=== PATIENT | female | born 2000 | race Hispanic/Latino ===

== ENCOUNTER 2018-10-22 16:53 | Outpatient (CLI) | payer OTHER ==
[~2018-10-22] VITALS: Ht 154.9 cm; Wt 73.3 kg
[2018-10-22 17:12] VITALS: BP 129/77
[2018-10-22] MEDS ORDERED: PRENTAB9 PO (17:25)
[2018-10-22 17:43] VITALS: BP 131/70
--- NOTE | 2018-10-22 20:18 | HPE ---
DATE OF ADMISSION: 10/22/2018 This lady is a 18-year-old, 1, LMP 02/24/2018, EDC by early ultrasound of 8 weeks' 2 days is 02/20/2019, came in with decreased movement of 24 hours at 22 and 5 weeks of gestation. LABORATORY DATA: A+, HIV negative, hepatitis negative, RPR negative, rubella immune. Varicella immune. Pap normal. Gonorrhea and chlamydia negative. Blood pressure 129/77, respirations 18, pulse 102 and temperature 98.3. No distress. Symphysis fundus height is appropriate. Four quadrant bowel sounds are noted. While here the patient actually felt movement. We got a short strip which showed a good baseline of 140 beats per minute. No decelerations. Good kick chart. No vaginal bleeding or loss. The patient was counseled to keep her appointment on 11/03/2018. Discharged undelivered.
== END 2018-10-22 17:50 | disposition home or self-care (01) ==
LOC: M LDO 16:53
PROVIDERS: ATTEND Obstetrics & Gynecology
DX: O36.8120 Decreased fetal movements, second trimester, not applicable or unspecified (principal); Z3A.22 22 weeks gestation of pregnancy
CPT/HCPCS: G0378; G0463

== ENCOUNTER 2019-01-08 11:20 | Outpatient (CLI) | payer OTHER ==
[~2019-01-08] VITALS: Ht 154.9 cm; Wt 87.4 kg
[~2019-01-08 11:20] MED LIST: PRENTAB9 PO
[2019-01-08 11:32] VITALS: BP 113/74
[2019-01-08] MEDS ORDERED: IRON27TA2 PO (11:45)
[2019-01-08] MEDS ORDERED: VITA100T59 PO (11:45)
[2019-01-08 12:37] VITALS: BP 111/58
--- NOTE | 2019-01-08 12:47 | IPNPDOC ---
Text Note Date of Service The patient was seen on 01/08/19. NOTE Triage Note Juani is a 18yo with SIUP at 33w6d by 1st trimester u/s presenting today for an episode of emesis, a loose BM, and some abdominal cramping. She notes excellent movement with no LOF, no regular ctx, no vaginal bleeding. She does not recall eating any strange new foods or fast food, no sick contacts. She had some eggs this morning and then a few minutes after, vomited. No blood in emesis or stool. No fevers/chills. No dysuria. No abnormal vaginal discharge. 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 status reassuring. Vitals wnl w/benign exam. No e/o PTL, SCE cl/th/high. Plan: -Safe for discharge home -Discussed concentrating on hydration today and BRAT diet -Next visit on 01/18, pt instructed to keep -Discussed return precautions at length Dr. Caitlin Witt MD VS,Barb, I+O VS, Barb, I+O Vital Signs Date Time Temp Pulse Resp B/P (MAP) Pulse Ox O2 Delivery O2 Flow Rate FiO2 01/08/19 11:32 98.0 93 18 113/74 (87) 98 Room Air Caitlin Witt MD Jan 08, 2019 12:47
== END 2019-01-08 12:55 | disposition home or self-care (01) ==
LOC: M LDO 11:20
PROVIDERS: ATTEND Obstetrics & Gynecology
DX: O99.89 Other specified diseases and conditions complicating pregnancy, childbirth and the puerperium (principal); Z3A.33 33 weeks gestation of pregnancy; K52.9 Noninfective gastroenteritis and colitis, unspecified
CPT/HCPCS: 59025; G0378; G0463

== ENCOUNTER 2019-02-18 18:11 | Outpatient (CLI) | payer OTHER ==
[~2019-02-18] VITALS: Ht 154.9 cm; Wt 87.6 kg
[~2019-02-18 18:11] MED LIST changes: +IRON27TA2 PO; +VITA100T59 PO
[2019-02-18 18:27] VITALS: BP 121/66
--- NOTE | 2019-02-18 19:07 | IPNPDOC ---
Text Note Date of Service The patient was seen on 02/18/19. NOTE 18 yo at 39+5 weeks presented to L&D with the complaint of decreased movement for the past 2 hours. Previously today she felt normal movement. She also reports intermittent contractions and would like her cervix checked. She denies any vaginal bleeding or discharge. She has GDMA1 and her blood sugars are well controlled. Most recently she reports a glucose value of 94 this afternoon. Chaperoned by L&D RN Vitals - VSS, afebrile, normotensive. Slightly tachycardic but no symptoms of SOB or palpitations. General - AAOX3, sitting up in bed, NAD, pleasant and conversant Abdomen - Gravid uterus, no fundal tenderness Cervix - Ft/thick/high, posterior FHR tracing - Cat I tracing with moderate variability, +accels, no decels. Irregular ctx on toco. NST reactive and Ms. Villela felt significant movement while in triage and was reassured. Not in labor based on exam. Patient discharged with return precautions. She has a follow up appointment booked for Thursday. Return to care sooner for any urgent concerns. DO LOI Liang,Barb, I+O VS, Paramjitbone, I+O Vital Signs Date Time Temp Pulse Resp B/P (MAP) Pulse Ox O2 Delivery O2 Flow Rate FiO2 02/18/19 18:27 97.7 121 18 121/66 (84) REGINALD CASSIDY DO Feb 18, 2019 19:07
== END 2019-02-18 19:00 | disposition home or self-care (01) ==
LOC: M LDO 18:11
PROVIDERS: ATTEND Obstetrics & Gynecology
DX: O36.8130 Decreased fetal movements, third trimester, not applicable or unspecified (principal); O47.1 False labor at or after 37 completed weeks of gestation; Z3A.39 39 weeks gestation of pregnancy
CPT/HCPCS: 59025; G0378; G0463

== ENCOUNTER 2019-02-20 15:37 | Inpatient (IN) | payer OTHER ==
[2019-02-20] VITALS (8 sets, daily range): BP systolic 90–123; BP diastolic 52–76
[~2019-02-20] VITALS: Ht 154.9 cm; Wt 87.8 kg
[2019-02-20] MEDS ORDERED: LACTATED RINGER'S 1000 ML IV STA (16:41)
[2019-02-20] MEDS ORDERED: LR 1,000 ML IV SCH (17:00)
[2019-02-20 17:24] LABS: HEMATOCRIT 34.8 % (36.0-47.0); HEMOGLOBIN 11.5 g/dl (12.0-15.5); MEAN CORPUSCULAR HEMOGLOBIN 27.8 pg (27.0-33.0); MEAN CORPUSCULAR VOLUME 84.3 fl (80.0-96.0); PLATELET COUNT, AUTOMATED 290 10^3/uL (150-450); RED BLOOD COUNT 4.13 10^6/uL (4.00-5.40); WHITE BLOOD COUNT 10.4 10^3/uL (4.0-10.0)
--- NOTE | 2019-02-20 18:01 | HPEPDOC ---
Obstetrical History & Physical General Date of Admission Feb 20, 2019 at 16:43 History of Present Illness Juani is a 18yo with SIUP at 40w0d by 8wk u/s presenting this afternoon with 2 complaints- the first is a new right sided "rib pain" that wraps around to her back. She notes that the pain makes taking a deep breath difficult. She does not remember any trauma or inciting incident. No palpitations. No fevers/chills. No leg pain. Her second complaint is DFM. She notes having been evaluated for this complaint within the last week and states that she does not get her kick counts anymore. She states this is a dramatic difference from previous. She believes she only felt 3 movements total yesterday. No lof. Does not feel ctx. No vaginal bleeding. In triage, vitals are wnl and exam consistent most with a musculoskel etal etiology for her rib pain. However, given that she does not get her kick counts and this has been ongoing, there is no way for me to send her home with the ability to reassure herself of wellbeing and since she is 40wk gestation, I recommend IOL. 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 Past Medical History Medical History benign Surgical History: Tonsilectomy Family History Significant Family History: No pertinent family hx Social History Marital Status: Family situation: Spouse/partner home Psychosocial History: No pertinent psych hx * Smoker: non-smoker Alcohol: Denies Drugs: denies Imunizations Tdap status: current Influenza Status: declined Allergies Coded Allergies: No Known Allergies (Unverified , 02/20/19) Medications Scheduled Ascorbic Acid (Vitamin C) 100 Mg Tablet, 1 TAB PO BID Unknown Dose Ferrous Gluconate (Iron) 236 Mg Tablet, 1 TAB PO BID Unknown dose No.137/Iron/Folic Acd ( Vitamin Tablet) 1 Each Tablet, 1 TAB PO DAILY Physical Examination Physical Examination GENERAL: Alert and oriented times three. ABDOMEN: Gravid and non-tender to touch. FETUS: Is vertex (VTX) by sterile vaginal examination (SVE) EXTREMITIES: No edema Vital Signs/I&O Vital Signs Date Time Temp Pulse Resp B/P (MAP) Pulse Ox O2 Delivery O2 Flow Rate FiO2 02/20/19 15:57 99.1 93 18 123/76 (92) 98 Room Air Laboratory Data CBC/BMP 28wk H/H: 10.1/30.5, plt 304 Pertinent Laboratoy Data Blood Type: A+ RBC Antibody Screen: Negative HIV: Negative Hepatitis B: Negative Hepatitis C: Unknown Rapid Plasma Reagin: Nonreactive Rubella: Immune Varicella: Immune Chlamydia/Gonorrhea: Negative Group B Streptococcus: Negative Quad Screen Test: Negative ([id number] wnl ) Glucose Tolerance Test: 152 (104/204/106/124) Anatomy Ultrasound Ultrasound Date: Oct 04, 2018 Placenta Location: Posterior Normal Anatomy: Yes Placenta Previa: No Steroid Therapy Steroid Therapy: No Vaginal Examination Dilation: Fingertip Effacement: 50% Station: -3 Cervical Consistency: Medium Cervical Position: Posterior Presentation: Cephalic presentation (by TAUS) Assessment Heart Rate (FHR): 150 Variability: Moderate Accelerations: Positive Decelerations: None Tocometer Contractions: Yes Frequency: irregular, greater than 10 min/apart Duration: less than 60 seconds Strength: palpated as mild Assessment/Plan Assessment Juani is a 18yo with SIUP at 40w0d by 8wk u/s being induced for decreased movement at term. SCE ft/50/-3 with rare ctx. Cephalic by TAUS. Cat I-II FHRT (occasions of min-mod suzy). Vitals wnl, benign exam. course and PMhx significant for: A1GDM well controlled with diet, a nemia on iron/vit C, excessive weight gain (46lb) Plan Admit and orient. [place] and consent. Diet: regular dinner then clear liquids Group B Streptococcus (GBS) negative Labs and intravenous (IV) per unit protocol. Counseled on cytotec, morrison bulb, Pitocin and induction of labor (IOL). Patient on admission is fingertip, so will proceed with cytotec 50mcg PO Q4hr. Lactated Ringers (LR): Bolus 500 mL, then at 125 mL/hr. Anticipate normal spontaneous delivery () Candidate for epidural in active labor, stadol in latent labor as desired MD Miryam Hare Katrina D MD Feb 20, 2019 17:01
[2019-02-20] MEDS ORDERED: BUTORPHANOL 2 MG/ML INJ (J0595) IV PRN (18:15)
[2019-02-20] MEDS: miSOPROStol 50 MCG 1/2 TAB (S0191) PO SCH ×2 (19:00→23:00)
[2019-02-20] MEDS ORDERED: diphenhydrAMINE INJ 50MG/ML VIAL (J1200) IV ONE (23:15)
[2019-02-21] VITALS (34 sets, daily range): BP systolic 97–130; BP diastolic 52–81
--- NOTE | 2019-02-21 03:44 | IPNPDOC ---
Text Note Date of Service The patient was seen on 02/21/19. NOTE Intrapartum Note Juani is doing well, was able to sleep a bit. Has had 2 doses of oral cytotec and feels slight cramping with ctx. Vitals wnl, afebrile Cat I-II FHRT (min-mod suzy, +accels, -decels) [place]: ctx q2-3min SCE: /-2, cook catheter morrison bulb placed with 40cc NS intrauterine Plan to begin pitocin and titrate per protocol up to 6mu then keep it at that rate until morrison bulb comes out, then will titrate up per protocol Will continue to monitor closely Safe to proceed Dr. Caitlin Witt MD VS,Barb, I+O VS, Barb, I+O Laboratory Tests 02/20/19 17:06 Vital Signs Date Time Temp Pulse Resp B/P (MAP) Pulse Ox O2 Delivery O2 Flow Rate FiO2 02/20/19 23:00 97.7 90 18 98/56 (70) 02/20/19 18:45 Room Air 02/20/19 15:57 98 I&O- Last 24 Hours up to 6 AM 02/21/19 05:59 Intake Total 500 ml Balance 500 ml Caitlin Witt MD Feb 21, 2019 03:44
[2019-02-21] MEDS: LR 1,000 ML IV SCH ×3 (04:43→16:43)
[2019-02-21] MEDS: OXYTOCIN DRIP 30 UNITS in IV 1 EA IV SCH (04:55)
--- NOTE | 2019-02-21 08:13 | IPNPDOC ---
Text Note Date of Service The patient was seen on 02/21/19. NOTE 18yo with SIUP at 40+1wks gestation admitted to l&d for IOL secondary to DFM. she has had cytotec x 2 and now with morrison bulb and pit. Morrison bulb placed around 0330. She is feeling comfortable at this point. pit: 4mU/min vitals: normal NAD FHT: 135/min-mod suzy/pos accel/no decel toco: ctx q2-3mins a/p patient is not in labor. recheck once bulb comes out. continue to titrate pit as needed. [place], VS,Fishbone, I+O VS, Fishbone, I+O Laboratory Tests 02/20/19 17:06 Vital Signs Date Time Temp Pulse Resp B/P (MAP) Pulse Ox O2 Delivery O2 Flow Rate FiO2 02/21/19 06:55 98.3 99 16 102/60 (74) 02/20/19 18:45 Room Air 02/20/19 15:57 98 I&O- Last 24 Hours up to 6 AM 02/21/19 06:00 Intake Total 500 ml Balance 500 ml JOSÉ BOOTHE DO Feb 21, 2019 08:13
--- NOTE | 2019-02-21 17:34 | IPNPDOC ---
Text Note Date of Service The patient was seen on 02/21/19. NOTE patient is feeling mild contractions. pit: 12mU/min vitals; normal standing, nad fht: 145/mod suzy/pos accel/no decel toco: ctx q 3mins ce: morrison bulb half way out of external cervical os, was easily removed. 1, A/P Patient in latent labor. okay to have regular diet for dinner. continue to titrate pit to effect. recheck in 6hrs. consider AROM at that time. Le, DO VS,Fishbone, I+O VS, Fishbone, I+O Vital Signs Date Time Temp Pulse Resp B/P (MAP) Pulse Ox O2 Delivery O2 Flow Rate FiO2 02/21/19 17:28 98.5 111 18 112/63 (79) 02/20/19 18:45 Room Air 02/20/19 15:57 98 I&O- Last 24 Hours up to 6 AM 02/21/19 06:00 Intake Total 500 ml Balance 500 ml JOSÉ BOOTHE DO Feb 21, 2019 17:34
[2019-02-21] MEDS ORDERED: FENTANYL 2MCG/ML ROPIVACAINE 0.2% IN 0.9% NACL 100ML IVBAG As Ordered ONE (23:59)
[2019-02-22] VITALS (24 sets, daily range): BP systolic 88–124; BP diastolic 50–77
[2019-02-22] MEDS ORDERED: FENTANYL/ROPIVACAINE/NACL BAG 100 ML EPIDURAL SCH (00:33)
[2019-02-22] MEDS ORDERED: EPIDURAL/PCA KEYS XX PRN (00:33)
[2019-02-22] MEDS ORDERED: REFRIGERATOR IV KEYS XX PRN (00:33)
[2019-02-22] MEDS ORDERED: ONDANSETRON 4MG/2ML VIAL (J2405) IV PRN (00:33)
[2019-02-22] MEDS ORDERED: diphenhydrAMINE INJ 50MG/ML VIAL (J1200) IV PRN (00:33)
[2019-02-22] MEDS ORDERED: ePHEDrine SULFATE 25 MG/5 ML(5MG/ML) SYRINGE IV PRN (00:33)
[2019-02-22] MEDS ORDERED: LACTATED RINGER'S 1000 ML IV PRN (00:33)
[2019-02-22] MEDS ORDERED: NALOXONE INJ 0.4 MG/1 ML VIAL (J2310) IV PRN (00:33)
[2019-02-22] MEDS ORDERED: EPIDURAL COMMENT XX SCH (00:33)
--- NOTE | 2019-02-22 01:32 | IPNPDOC ---
Text Note Date of Service The patient was seen on 02/22/19. NOTE patient with epidural for pain management. vitals: normal nad fth: 140/min-mod suzy/pos accel/no decel toco: ctx q2-4mins ce: 3-4/50/-1, arom clear a/p patient in latent labor. continue to titrate pit to effect. recheck as appropriate. Le, DO VS,Fishbone, I+O VS, Fishbone, I+O Vital Signs Date Time Temp Pulse Resp B/P (MAP) Pulse Ox O2 Delivery O2 Flow Rate FiO2 02/21/19 23:26 95 104/66 (79) 02/21/19 21:24 97.9 18 02/20/19 18:45 Room Air 02/20/19 15:57 98 I&O- Last 24 Hours up to 6 AM 02/22/19 06:00 Intake Total 2910 ml Output Total 2450 ml Balance 460 ml JOSÉ BOOTHE DO Feb 22, 2019 01:32
--- NOTE | 2019-02-22 07:35 | IPNPDOC ---
Text Note Date of Service The patient was seen on 02/22/19. NOTE patient with epidural for pain management and feeling pressure. pit: 8mU/min fht: 140/min suzy/poss accel/no decel toco: ctx q 2-3mins ce: c/c/+2. a/p patient in second stage of labor. Start pushing. VS,Fishbone, I+O VS, Fishbone, I+O Vital Signs Date Time Temp Pulse Resp B/P (MAP) Pulse Ox O2 Delivery O2 Flow Rate FiO2 02/22/19 06:47 108 122/58 (79) 02/22/19 06:17 98.1 16 02/20/19 18:45 Room Air 02/20/19 15:57 98 I&O- Last 24 Hours up to 6 AM 02/22/19 06:00 Intake Total 2910 ml Output Total 2450 ml Balance 460 ml JOSÉ BOOTHE DO Feb 22, 2019 07:35
[2019-02-22] MEDS: OXYTOCIN DRIP 30 UNITS in IV 1 EA IV SCH (08:31)
--- NOTE | 2019-02-22 08:34 | DNPDOC ---
[facility] Delivery Note Delivery Note DATE OF DELIVERY: 02/22/19 PREDELIVERY DIAGNOSIS: 40+1/7 weeks' gestation and labor. POST DELIVERY DIAGNOSIS: Delivered. PROCEDURE: Spontaneous vaginal delivery PLANT MAINTENANCE WORKER: Dr. José Abdi DO ANESTHESIA: epidural ESTIMATED BLOOD LOSS: 250 mL. FINDINGS: 7 pound 12 ounce, male , 8/9 DELIVERY SUMMARY: With good maternal effort, baby delivered OA, restituted ROT. Anterior shoulder delivered followed by posterior shoulder. body followed with ease. Baby placed on maternal abdomen. Cord allowed to stop pulsating. pitocin bolus started. Placenta delivered spontaneously. fundus massaged firm. inspection reveals no laceration. baby and mother bonding when I left the room. JOSÉ ABDI DO Feb 22, 2019 08:34
[2019-02-22] MEDS ORDERED: OXYTOCIN DRIP 30 UNITS in IV 1 EA IV SCH (08:35)
[2019-02-22] MEDS ORDERED: MEASLES,MUMPS,RUBELLA VACCINE INJ (MMR-II) (90707) SC SCH (08:45)
[2019-02-22] MEDS ORDERED: DOCUSATE SODIUM 100 MG CAP PO PRN (08:45)
[2019-02-22] MEDS ORDERED: DIBUCAINE 1% OINTMENT 30GM TOP PRN (08:45)
[2019-02-22] MEDS ORDERED: RHOGAM 300 MCG (1500 IU) INJ (J2790) IM SCH (08:45)
[2019-02-22] MEDS: PRENATAL VITAMINS CHEWABLE TABLET PO SCH (09:00)
[2019-02-22] MEDS: IBUPROFEN 800 MG TAB PO PRN ×2 (11:55→18:23)
[2019-02-23] MEDS: ACETAMINOPHEN TAB 650MG DOSE (2X325MG) PO PRN ×3 (00:47→18:04)
[2019-02-23] MEDS: IBUPROFEN 800 MG TAB PO PRN ×2 (05:31→13:52)
[2019-02-23 05:35] VITALS: BP 113/77
[2019-02-23] MEDS: PRENATAL VITAMINS CHEWABLE TABLET PO SCH (08:14)
--- NOTE | 2019-02-23 08:17 | IPNPDOC ---
Progress Note Date of Service: Feb 23, 2019 Day#: 1 Progress Note PPD 1 SUBJECT: Juani is a 19yo [id number] s/p uncomplicated on 02/22 after undergoing IOL for DFM, doing well day # 1. She has been ambulating, voiding spontaneously without issue and tolerating regular diet. Bottle feeding by choice without issue. Reports lochia is like a normal period. Denies f/c/n/v/CP/SOB. OBJECTIVE: VITAL SIGNS: Within normal limits, afebrile. Alert and oriented times three. Abdomen: Fundus firm at U-2. Soft, NTTP. Extremities: no pain with palpation of calves ASSESSMENT: Juani is a 19yo [id number] s/p uncomplicated on 02/22 after undergoing IOL for DFM, doing well day # 1. Vitals within normal limits, afebrile, hemodynamically stable with no evidence of infection. PLAN: 1. Discharge to home today (or boarding status if winder hand does not approve infant's discharge) 2. Tylenol and Motrin for pain. Colace for bowel regimen. Patient has home meds. 3. Encourage breast feeding and ambulation. 4. Routine PP visit in 6 weeks in clinic. 5. Discussed return precautions at length. 6. Vaginal rest 6 weeks and no heavy lifting Dr. Caitlin Witt MD VS, I&O, 24H, Fishbone Vital Signs/I&O Vital Signs Date Time Temp Pulse Resp B/P (MAP) Pulse Ox O2 Delivery O2 Flow Rate FiO2 02/23/19 05:35 98.3 83 18 113/77 (89) 02/22/19 18:06 97 Room Air I&O- Last 24 Hours up to 6 AM 02/23/19 06:00 Output Total 1350 ml Balance -1350 ml Caitlin Witt MD Feb 23, 2019 08:16
[2019-02-23] MEDS ORDERED: DOCU100C16 PO (08:18)
[2019-02-23] MEDS ORDERED: ACET1TAB55 PO (08:18)
[2019-02-23] MEDS ORDERED: IBUP80TA PO (08:18)
[2019-02-23] MEDS ORDERED: DIBU10OI TOP (08:18)
--- NOTE | 2019-02-23 08:22 | DS.PDOC ---
Discharge Summary General Date of Admission Feb 20, 2019 at 16:43 Date of Discharge Feb 23, 2019 Attending Physician: Caitlin Witt MD Discharge Summary PROCEDURES PERFORMED DURING STAY: spontaneous vaginal delivery ADMITTING DIAGNOSES: 1. Term gestation with decreased movement DISCHARGE DIAGNOSES: 1. Term gestation with decreased movement COMPLICATIONS/CHIEF COMPLAINT: Sharp Pain Right Side And Back. HISTORY OF PRESENT ILLNESS/HOSPITAL COURSE: Juani is a 19yo [id number] s/p uncomplicated on 02/22 after undergoing IOL for DFM. She had a benign course and at time of discharge, vitals were within normal limits, she was afebrile, hemodynamically stable with no evidence of infection. DISCHARGE MEDICATIONS: Please see below. ALLERGIES: Please see below. PHYSICAL EXAMINATION ON DISCHARGE: VITAL SIGNS: Within normal limits, afebrile. Alert and oriented times three. Abdomen: Fundus firm at U-2. Soft, NTTP. Extremities: no pain with palpation of calves LABORATORY DATA: Please see below. ACTIVITY: As tolerated, vaginal rest 6 weeks DIET: regular DISPOSITION: Home DISCHARGE PLAN/INSTRUCTIONS: 1. Discharge to home today (or boarding status if associate genetics professor does not approve infant's discharge) 2. Tylenol and Motrin for pain. Colace for bowel regimen. Patient has home meds. 3. Encourage breast feeding and ambulation. 4. Routine PP visit in 6 weeks in clinic. 5. Discussed return precautions at length. 6. Vaginal rest 6 weeks and no heavy lifting DISCHARGE CONDITION: Stable TIME SPENT ON DISCHARGE: Greater than [address] Caitlin Witt MD Vital Signs/I&Os Vital Signs Date Time Temp Pulse Resp B/P (MAP) Pulse Ox O2 Delivery O2 Flow Rate FiO2 02/23/19 05:35 98.3 83 18 113/77 (89) 02/22/19 18:06 97 Room Air I&O- Last 24 Hours up to 6 AM 02/23/19 06:00 Output Total 1350 ml Balance -1350 ml Discharge Medications Scheduled Ascorbic Acid (Vitamin C) 100 Mg Tablet, 1 TAB PO BID, (Reported) Unknown Dose Ferrous Gluconate (Iron) 236 Mg Tablet, 1 TAB PO BID, (Reported) Unknown dose No.137/Iron/Folic Acd ( Vitamin Tablet) 1 Each Tablet, 1 TAB PO DAILY, (Reported) Scheduled PRN Acetaminophen (Acetaminophen) 325 Mg Tablet, 650 MG PO Q4HP PRN for mitchell/fever Dibucaine (Dibucaine) 28 Gm Oint...g., 0 DOSE TOP Q4HP PRN for PAIN Docusate Sodium (Docusate Sodium) 100 Mg Capsule, 100 MG PO QHSP PRN for CONSTIPATION Ibuprofen (Ibuprofen) 800 Mg Tablet, 800 MG PO Q8HP PRN for pain Allergies Coded Allergies: No Known Allergies (Unverified , 02/20/19) Caitlin Witt MD Feb 23, 2019 08:22
[2019-02-23] MEDS ORDERED: INFLUENZA QUADRIVALENT PF VACCINE 0.5ML SYRINGE (90686) IM ONE (09:00)
== END 2019-02-23 18:45 | disposition home or self-care (01) | DRG 807 ==
LOC: M LDO 15:37 → M LDI 16:43 → M OBS 02-22 11:34
PROVIDERS: ADMIT Obstetrics & Gynecology; ATTEND Obstetrics & Gynecology
PROC: 3E0P7GC Introduction of Other Therapeutic Substance into Female Reproductive, Via Natural or Artificial Opening (ICD-10-PCS; 2019-02-20)
PROC: 10E0XZZ Delivery of Products of Conception, External Approach (ICD-10-PCS; principal; 2019-02-22)
PROC: 10907ZC Drainage of Amniotic Fluid, Therapeutic from Products of Conception, Via Natural or Artificial Opening (ICD-10-PCS; 2019-02-22)
DX: O36.8130 Decreased fetal movements, third trimester, not applicable or unspecified (principal); Z37.0 Single live birth; Z3A.40 40 weeks gestation of pregnancy; O24.420 Gestational diabetes mellitus in childbirth, diet controlled; O26.03 Excessive weight gain in pregnancy, third trimester; O99.02 Anemia complicating childbirth; D64.9 Anemia, unspecified